=== PATIENT | female | born 1990 | race Caucasian/White ===

== ENCOUNTER 2018-05-19 15:11 | Emergency (ER) | payer OTHER ==
[2018-05-19 15:11] VITALS: BMI 34.3
[2018-05-19 15:26] VITALS: TEMP 99
--- NOTE | 2018-05-19 15:59 | C.PDOC ---
History Of Present Illness 28-year-old female, presents to the emergency department for evaluation of left foot pain, developed one week after she slipped and fell walking downstairs. Pain is worse with ambulation. No deformity, bruising, swelling, numbness/ weakness, or any other associated symptoms. No other complaints at this time. Time Seen by Provider: 05/19/18 15:25 Chief Complaint (Nursing): Lower Extremity Problem/Injury History Per: Patient History/Exam Limitations: no limitations Current Symptoms Are (Timing): Still Present Past Medical History Reviewed: Historical Data, Nursing Documentation, Vital Signs Vital Signs: Last Vital Signs Temp 99 F 05/19/18 15:22 Pulse 78 05/19/18 15:22 Resp 18 05/19/18 15:22 BP 119/78 05/19/18 15:22 Pulse Ox 97 05/19/18 15:59 - Medical History PMH: Asthma (childhood), Pneumonia Family History: States: No Known Family Hx - Social History Hx Tobacco Use: Yes Hx Alcohol Use: No Hx Substance Use: No - Immunization History Hx Tetanus Toxoid Vaccination: No Hx Influenza Vaccination: Yes Hx Pneumococcal Vaccination: No Review Of Systems Constitutional: Negative for: Fever Respiratory: Negative for: Shortness of Breath Gastrointestinal: Negative for: Nausea, Vomiting Musculoskeletal: Positive for: Foot Pain (Left) Neurological: Negative for: Weakness, Numbness Physical Exam - Physical Exam Appears: Well, Non-toxic, No Acute Distress Skin: Warm, Dry, No Rash, No Ecchymosis Eye(s): bilateral: PERRL Extremity: Normal ROM (Left foot without difficulty, no neurovscular deficits.) , Tenderness (Left foot: 4th toe. no ecchymoses, no edema, no palpable deformity.), No Deformity (left foot), No Swelling Pulses: Left Dorsalis Pedis: Normal, Right Dorsalis Pedis: Normal Neurological/Psych: Oriented x3, Normal Speech ED Course And Treatment O2 Sat by Pulse Oximetry: 97 (RA) Pulse Ox Interpretation: Normal - Other Rad Left foot X-Ray: Interpreted by Me, Viewed By Me Interpretation: (-) acute fx or dislocation Progress Note: On re-eval, pt is afebrile, hemodynamicaly stable. AMbulatory in ED with stable gait. left foot: mild tenderness over 4th toe. No edema, no ecchymoses, no deformity. FAROM, no neurovscular deficits. Imaging review, no acute findings. Pt has clinical findings c/w Left toe/foot contusion. Pt advised. ref. to f/u with Adult Care Provider in 2-3 days for re-eavl. Disposition Counseled Patient/Family Regarding: Studies Performed, Diagnosis, Need For Followup, Rx Given - Disposition Referrals: [facility] [Outside] Disposition: HOME/ ROUTINE Disposition Time: 16:10 Condition: STABLE Additional Instructions: Comfortable shoes, avoid close shoe for 1 week take Ibuprofen daily for 4-5 days Avoid prolong walking Follow up with Adult Care Provider on Tuesday form noon-3PM for further evaluation as need return if any new changes. Prescriptions: Ibuprofen [Motrin Tab] 600 mg PO BID #10 tab Instructions: Toe Injury Forms: [facility] (Indonesian) - Clinical Impression Clinical Impression: Toe contusion - Scribe Statement The provider has reviewed the documentation as recorded by the Scribe (Kia Higgins) All medical record entries made by the Scribe were at my direction and personally dictated by me. I have reviewed the chart and agree that the record accurately reflects my personal performance of the history, physical exam, medical decision making, and the department course for this patient. I have also personally directed, reviewed, and agree with the discharge instructions and disposition.
[2018-05-19 16:44] VITALS: BP 107/73; PULSE 72; RESP 17; O2SAT 100
--- NOTE | 2018-05-20 09:24 | RAD ---
Date of service: 05/19/2018 PROCEDURE: Left Foot Radiographs. HISTORY: injury COMPARISON: None. FINDINGS: BONES: No acute fracture or destructive bony lesion identified. Mild deformity of the 5th metatarsal bone diaphysis may reflect old healed fracture. JOINTS: Normal. SOFT TISSUES: Normal. OTHER FINDINGS: None. IMPRESSION: No acute fracture, dislocation or suspicious bony lesion. Old healed fracture 5th metatarsal bone in question left foot.
== END 2018-05-19 16:44 | disposition home or self-care (01) ==
LOC: C.ER 15:11
DX: S90.122A Contusion of left lesser toe(s) without damage to nail, initial encounter (principal); W10.9XXA Fall (on) (from) unspecified stairs and steps, initial encounter